=== PATIENT | female | born 1975 | race Caucasian/White ===

== ENCOUNTER → 2018-05-28 14:11 | Outpatient (CLI) | payer OTHER, SELFPAY ==
[2018-06-04 11:29] LABS: HPV APTIMA, High Risk Negative (Negative)
== END ==
PROVIDERS: Visit Provider Obstetrics & Gynecology
DX: Z12.4 Encounter for screening for malignant neoplasm of cervix (principal)
CPT/HCPCS: 88175; G0145

== ENCOUNTER → 2020-05-16 17:28 | Outpatient (CLI) | payer OTHER, SELFPAY ==
[2020-05-23 21:50] LABS: HPV APTIMA, High Risk Negative (Negative)
== END ==
PROVIDERS: Visit Provider Obstetrics & Gynecology
DX: Z12.4 Encounter for screening for malignant neoplasm of cervix (principal)
CPT/HCPCS: 87624; 88175; G0145

== ENCOUNTER → 2020-07-03 16:55 | Outpatient (CLI) | payer OTHER, SELFPAY ==
[2016-09-07 13:03] VITALS: BMI 21.7
--- NOTE | 2020-07-03 | IMM_PTH ---
PATIENT: RADHA WILLOUGHBY LOC: [facility] U#:[id number] AGE/SX: 49/F ROOM: RE07/03/[address]: Dr. Celina Marquez MD : 1975 BED: DIS: SPEC #: [id number] RECD: 07/05/20 14:35 STATUS: JEANNE REAnjelica #: [id number] ROBEL: 07/03/20 00:[address]: Celina Duval DEPT: IMMUNOHISTOCHEMISTRY RECD BY: Pamella Ty ENTERED: 07/05/20 14:37 SP TYPE: IMMUNO OTHR DR: No Primary Care Phys Tissues: A - Uterine cervix, NOS Procedures: p16 (initial) KI-67 (add) PHYSICIAN & INSTITUTION [place] [facility] [id number] SPECIMEN INFORMATION: Tissue Source: A - Cervix at 7 o'clock Clinical Info: R87.610 Specimen Number: [id number] CPT code: 80451, 18219 METHODOLOGY: Deparaffinized sections of prefer/formalin-fixed tissue or PAP/DQ stained slides are incubated with monoclonal/polyclonal antibodies/oligonucleotide probes. Localization is made via biotin free immunoperoxidase method. Appropriate controls are performed and reacted as expected. Results on target cell population are indicated in the following table: RESULTS: ANTIBODY / CLONE RESULT Block A P16 (E6H4) positive, rare Ki-67 (30-9) negative These tests were developed and their performance characteristics determined by [facility]. They may not have been cleared or approved by the [place] Food and Drug Administration. The FDA has determined that such clearance or approval is not necessary. The above immunohistochemical/dualISH markers are ordered and reviewed by the Pathologist. INTERPRETATION: A. Cervix at 7 o'clock, biopsy: Focal HPV change suspected. AM:charissa 07/06/20
--- NOTE | 2020-07-03 16:45 | CER_PTH ---
PATIENT: RADHA WILLOUGHBY LOC: [facility] U#:[id number] AGE/SX: 49/F ROOM: RE07/03/[address]: Dr. Celina Marquez MD : 1975 BED: DIS: SPEC #: [id number] RECD: 07/03/20 17:33 STATUS: JEANNE SORENSON #: [id number] ROBEL: 07/03/20 16:[address]: Celina Duval DEPT: SURGICAL PATHOLOGY RECD BY: Errol Cabral ENTERED: 07/04/20 13:22 SP TYPE: CERV OTHR DR: No Primary Care Phys Tissues: A - Uterine cervix, NOS B - POLYP C - Endocervical Procedures: Surgery Specimen Level IV HEADER OPERATION: Colposcopy / polypectomy PRE-OP DIAGNOSIS: R87.610 TISSUE SUBMITTED: A - 7 o'clock, B - Polypectomy (cervix), C - ECC MICROSCOPIC DIAGNOSIS A. Cervix at 7 o'clock, biopsy: Focal HPV change suspected. Squamous metaplasia and chronic inflammation. See comment. B. Cervical polyp, polypectomy: Fragments of benign endocervical tissue. C. Endocervix, curettings: Scant strips of benign superficial endocervix. No evidence of dysplasia. AM:charissa 07/05/20 COMMENT A. Results from immunohistochemistry ([id number]) for surrogate HPV marker (p16) will be reported separately. Case has been reviewed in consultation with Dr. Hunter who concurs with the above diagnosis. IDC:SJ MICROSCOPIC DESCRIPTION Slides are reviewed. GROSS DESCRIPTION A - Received in fixative is one container labeled with the patient's name and designated 7 o'clock. The specimen consists of one irregular fragment of light velez soft tissue that measures 0.5 x 0.5 x 0.1 cm. The specimen is totally submitted in one cassette. B - Received in fixative is one container labeled with the patient's name and designated polyp. The specimen consists of light velez mucoid material aggregating to 1 x 0.7 x <0.1 cm. The specimen is totally submitted in one cassette. C - Received in fixative is one container labeled with the patient's name and designated ECC. The specimen consists of reddish-velez mucoid material aggregating to 1.5 x 1 x 0.1 cm. The specimen is totally submitted in one cassette. / AM:charissa 07/04/20 TC:3 CPT: 54839 x3
== END ==
PROVIDERS: Visit Provider Obstetrics & Gynecology
DX: R87.610 Atypical squamous cells of undetermined significance on cytologic smear of cervix (ASC-US) (principal)
CPT/HCPCS: 88305; 88341; 88342

== ENCOUNTER → 2020-08-01 15:54 | Outpatient (CLI) | payer OTHER, SELFPAY ==
[2016-09-07 13:03] VITALS: BMI 21.7
--- NOTE | 2020-08-01 15:56 | BI_ITS ---
MAMMOGRAPHY - BILATERAL SCREENING REASON FOR EXAM: Female, 44 years old. Routine annual screening examination. PERTINENT HISTORY: Grandmother with breast cancer. TECHNIQUE: Digital bilateral breast leticia (3D mammographic acquisition) in the CC and MLO projections. 2-D mediolateral oblique (MLO) and craniocaudad (CC) views of both breasts were obtained. CAD: Full Field Digital Mammography with Computer Added Detection was performed. COMPARISON: None. Baseline examination. FINDINGS: Breast Composition: The breasts are extremely dense, which lowers the sensitivity of mammography. There are no dominant masses or suspicious calcifications. No other significant abnormalities are identified. BI/SCREEN MAMM (CAD) W/LETICIA BILAT IMPRESSION: Negative screening mammogram. Yearly followup mammogram recommended. (A) ASSESSMENT CATEGORY: BIRADS Category 1: Negative. A letter regarding these results will be sent to the patient by the facility within 30 days. Approximately 10% of breast cancers are not detected by mammography. A normal mammogram should not delay biopsy of a clinically suspicious abnormality. [id number] Electronically Signed: Gabriel Guerra, at 11:00 EDT , Service support ,
== END ==
PROVIDERS: Referring Provider Obstetrics & Gynecology; Visit Provider Obstetrics & Gynecology
DX: Z12.31 Encounter for screening mammogram for malignant neoplasm of breast (principal)
CPT/HCPCS: 77063; 77067

== ENCOUNTER 2021-12-31 16:46 | Outpatient (CLI) | payer OTHER, SELFPAY ==
[2022-01-08 16:17] LABS: HPV APTIMA, High Risk Negative (Negative)
== END 2021-12-31 23:59 | disposition home or self-care (01) ==
LOC: LABSPEC 16:47
PROVIDERS: Visit Provider Obstetrics & Gynecology
DX: Z12.4 Encounter for screening for malignant neoplasm of cervix (principal)
CPT/HCPCS: 87624; 88175; G0145

== ENCOUNTER 2022-01-17 14:02 | Outpatient (CLI) | payer OTHER, SELFPAY ==
--- NOTE | 2022-01-17 14:21 | US_ITS ---
STUDY: ULTRASOUND BREAST - RIGHT REASON FOR EXAM: Female, 46 years old. Pain in the right breast. TECHNIQUE: Axial and longitudinal images of the RIGHT breast were performed with a high resolution ultrasound transducer. # OF IMAGES: 23 COMPARISON: Comparison is made with prior mammogram done earlier today. FINDINGS: RIGHT Breast: The retroareolar region of the right breast was examined by ultrasound. There is evidence of a dilated retroareolar ducts up to 2.5 mm in diameter. US/Breast Limited Unilateral IMPRESSION: Dilated retroareolar ducts up to 2.5 mm in diameter. ASSESSMENT CATEGORY: BIRADS Category 2: Benign. A letter regarding these results will be sent to the patient by the facility within 30 days. Electronically Signed: Gabriel Guerra MD at 8:37 EDT ,
--- NOTE | 2022-01-17 14:21 | BI_ITS ---
MAMMOGRAPHY - BILATERAL DIAGNOSTIC REASON FOR EXAM: Female, 46 years old. 2-3 month history of bilateral breast pain. Painful right retroareolar region. PERTINENT HISTORY: Grandmother with breast cancer. TECHNIQUE: Digital bilateral breast leon (3D mammographic acquisition) in the CC and MLO projections. 2-D mediolateral oblique (MLO) and craniocaudad (CC) views of both breasts were obtained. CAD: Full Field Digital Mammography with Computer Added Detection was performed. COMPARISON: Comparison is made with prior examination 08/01/2020. FINDINGS: Breast Composition: The breasts are extremely dense, which lowers the sensitivity of mammography. There are no dominant masses or suspicious calcifications. No other significant abnormalities are identified. There has been no significant change since the prior study. BI/DIAG MAMM W/CAD, BILAT IMPRESSION: Stable bilateral diagnostic mammogram. Repeat patient''s history of continued right retroareolar pain, correlation with ultrasound is recommended. ASSESSMENT CATEGORY: BIRADS Category 0: Incomplete. Need additional imaging evaluation. A letter regarding these results will be sent to the patient by the facility within 30 days. Approximately 10% of breast cancers are not detected by mammography. A normal mammogram should not delay biopsy of a clinically suspicious abnormality. Electronically Signed: Gabriel Guerra MD at 8:36 EDT ,
== END 2022-01-17 23:59 | disposition home or self-care (01) ==
PROVIDERS: Referring Provider Obstetrics & Gynecology; Visit Provider Obstetrics & Gynecology
DX: N64.4 Mastodynia (principal)
CPT/HCPCS: 76642; 77062; 77066; G0279